=== PATIENT | male | born 1965 | race Caucasian/White ===

== ENCOUNTER 2016-09-27 17:39 | Emergency (ER) | payer OTHER ==
[2016-09-27 17:52] VITALS: BP 131/90; PULSE 88; RESP 16; TEMP 98.6; O2SAT 93
--- NOTE | 2016-09-27 18:10 | UCPHY ---
H & P Patient Type: New Chief Complaint Nursing Narrative: c/o cough worse at night, sinus congestion, CHEUNG Time Seen by Provider: 09/27/16 18:01 HPI/ROS: CHIEF COMPLAINT: Sinus congestion HISTORY OF PRESENT ILLNESS: Patient is a 51-year-old healthy man who comes to the Urgent Care complaining of sinus congestion. He states that he has had the symptoms for about 12 days. It began as a cough and then migrated to sinuses. He has thick mucus see greenish not. No sore throat. No fever. Mild frontal headache. No vision changes. No trauma. Classifies symptoms as moderate. REVIEW OF SYSTEMS: Constitutional: denies: chills, fever, recent illness, recent injury EENTM: See HPI Respiratory: denies: cough, shortness of breath Cardiac: denies: chest pain, irregular heart rate, lightheadedness, palpitations Gastrointestinal/Abdominal: denies: abdominal pain, diarrhea, nausea, vomiting, blood streaked stools Genitourinary: denies: dysuria, frequency, hematuria, pain Musculoskeletal: denies: joint pain, muscle pain Skin: denies: lesions, rash, jaundice, bruising Neurological: denies: headache, numbness, paresthesia, tingling, dizziness, weakness Hematologic/Lymphatic: denies: blood clots, easy bleeding, easy bruising Immunologic/allergic: denies: HIV/AIDS, transplant EXAM: GENERAL: Well-appearing, well-nourished and in no acute distress. HEAD: Atraumatic, normocephalic. EYES: Pupils equal round and reactive to light, extraocular movements intact, sclera anicteric, conjunctiva are normal. ENT: Tympanic membrane effusions, sinus congestion and tenderness, no dental pain NECK: Normal range of motion, supple without lymphadenopathy or JVD. LUNGS: Breath sounds clear to auscultation bilaterally and equal. No wheezes rales or rhonchi. HEART: Regular rate and rhythm without murmurs, rubs or gallops. ABDOMEN: Soft, nontender, normoactive bowel sounds. No guarding, no rebound. No masses appreciated. BACK: No CVA tenderness, no spinal tenderness, step-offs or deformities EXTREMITIES: Normal range of motion, no pitting or edema. No clubbing or cyanosis. NEUROLOGICAL: Cranial nerves II through XII grossly intact. Normal speech, normal gait. 5/5 strength, normal movement in all extremities, normal sensation PSYCH: Normal mood, normal affect. SKIN: Warm, dry, normal turgor, no visible rashes or lesions. Source: Patient Exam Limitations: No limitations - Medical/Surgical History Hx Asthma: No Hx Chronic Respiratory Disease: No Hx Diabetes: No Hx Cardiac Disease: No Hx Renal Disease: No Hx Cirrhosis: No Hx Alcoholism: No Other PMH: exercise induced asthma - Family History Significant Family History: No pertinent family hx - Social History Smoking Status: Never smoked Alcohol Use: Sober Drug Use: None Constitutional: Initial Vital Signs Temperature (C) 37 C 09/27/16 17:50 Heart Rate 88 09/27/16 17:50 Respiratory Rate 16 09/27/16 17:50 Blood Pressure 131/90 H 09/27/16 17:50 O2 Sat (%) 93 09/27/16 17:50 O2 Delivery Mode Room Air Allergies/Adverse Reactions: No Known Allergies Allergy (Unverified 09/27/16 17:50) Home Medications: Medication Instructions Recorded Albuterol 09/27/16 Azithromycin [Zithromax] 250 mg PO DAILY #6 tab 09/27/16 Medical Decision Making ED Course/Re-evaluation: Patient clinically has sinusitis. It has been greater than 10 days. I will start him on azithromycin. He declines further workup or testing. He has been using decongestants without success. He is happy with this plan and declines further workup or testing. Differential Diagnosis: Partial list of the Differential diagnosis considered include but were not limited to; sinusitis, upper respiratory tract infection, viral syndrome, otitis media and although unlikely based on the history and physical exam, I also considered pharyngitis, pneumonia, sepsis, abscess. I discussed these differential diagnoses and the plan with the patient as well as the usual and expected course. The patient understands that the diagnosis is provisional and that in medicine we are not always correct and that further workup is often warranted. Usual and customary warnings were given. All of the patient's questions were answered. The patient was instructed to return to the emergency department should the symptoms at all worsen or return, otherwise to followup with the physician as we discussed. Departure - Departure Disposition: Home, Routine, Self-Care Clinical Impression: Sinusitis Qualifiers: Sinusitis location: pansinusitis Chronicity: acute Recurrence: non-recurrent Qualified Code(s): J01.40 - Acute pansinusitis, unspecified Condition: Fair Instructions: Sinusitis (ED) Referrals: Tayo Vivas MD [Medical Doctor] - As per Instructions Prescriptions: Azithromycin [Zithromax] 250 mg PO DAILY #6 tab - PQRS PQRS Measurement: Not applicable
== END 2016-09-27 18:26 | disposition home or self-care (01) ==
LOC: CED 17:39
DX: J01.90 Acute sinusitis, unspecified (principal)
CPT/HCPCS: 99204-PO; G0463-PO

== ENCOUNTER → 2018-01-05 | Outpatient (CLI) | payer OTHER | LOC: FIMAGING 08:06 | PROVIDERS: ATTEND Family Medicine Sports Medicine | DX: S46.011A Strain of muscle(s) and tendon(s) of the rotator cuff of right shoulder, initial encounter (principal); M89.311 Hypertrophy of bone, right shoulder; M75.92 Shoulder lesion, unspecified, left shoulder ==